=== PATIENT | male | born 1990 | race African-American/Black ===

== ENCOUNTER 2016-12-09 12:01 | Emergency (ER) | payer OTHER ==
[~2016-12-09] VITALS: Ht 177.8 cm; Wt 65.0 kg
[~2016-12-09 12:01] MED LIST: BACT800T5 PO; CEPH-459 PO
--- NOTE | 2016-12-09 12:13 | PD ---
HPI . suicide ideation/depression, suicide attempt Chief Complaint: suicidal ideation Time Seen by Provider: 12:13 Travel History International Travel<30 days: No Contact w/Intl Traveler<30days: No Traveled to known affect area: No History of Present Illness HPI 26-year-old male with history of bipolar disorder here with complaints of worsening depression and suicidal ideation. Patient tells me that his "baby christinaa" left him in February and took his only child away from him been feeling down and depressed ever since. He reports that he has grown up his whole life in a double parent household and it is causing him a great depression thinking that his child only has one parent available. He says despite having visitation with the child, he remains extremely depressed. Yesterday he decides to take 6 Latuda tablets. He went to [facility] this morning in hopes of receiving help. He was Gibson acted and brought into the emergency department for further evaluation. He currently reports depressed mood without any medical complaints. PFSH Past Medical History Hx Anticoagulant Therapy: No ADHD: Yes Asthma: Yes Anxiety: Yes Depression: Yes Cardiovascular Problems: No Chemotherapy: No Cerebrovascular Accident: No Diabetes: No Diminished Hearing: No Genitourinary: No Musculoskeletal: No Neurologic: No Reproductive: No Respiratory: Yes (ASTHMA) Immunizations Current: Yes Past Surgical History Other Surgery: No Social History Alcohol Use: Yes (OCC) Tobacco Use: No (DENIES) Substance Use: Yes (MARIJUANA, 2 DAYS AGO, 2X WEEKLY) Allergies-Medications (Allergen,Severity, Reaction): Coded Allergies: *MDRO Multi-Drug Resistant Organism (Verified Adverse Reaction, Unknown, 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 (face-06/06/16) Reported Meds & Prescriptions Reported Meds & Active Scripts Active Reported Gabapentin 300 Mg Cap 300 Mg PO TID Latuda (Lurasidone) 40 Mg Tab 40 Mg PO DAILY Review of Systems General / Constitutional: No: Fever Eyes: No: Visual changes HENT: No: Headaches Cardiovascular: No: Chest Pain or Discomfort Respiratory: No: Shortness of Breath Gastrointestinal: No: Abdominal Pain Genitourinary: No: Dysuria Musculoskeletal: No: Pain Skin: No Rash Neurologic: No: Weakness Psychiatric: Positive: Depression, Suicidal Ideations Endocrine: No: Polydipsia Hematologic/Lymphatic: No: Easy Bruising Physical Exam Narrative GENERAL: AAO x 3, no acute distress, Well-nourished, well-developed patient. SKIN: Warm and dry. No visible rashes or bruising. HEAD: Normocephalic and atraumatic. EYES: No scleral icterus. No injection or drainage. EOM intact, PERRLA ENT: No nasal drainage noted. Mucous membranes pink. Airway patent. NECK: Supple, trachea midline. No JVD. CARDIOVASCULAR: Regular rate and rhythm without murmurs, gallops, or rubs. RESPIRATORY: Breath sounds equal bilaterally. No accessory muscle use. No rhonchi or rales. GASTROINTESTINAL: Abdomen soft, non-tender, nondistended. EXTREMITIES: No cyanosis or edema. NEURO: CN II through XII intact, channel rougher strength normal bilaterally, upper and lower extremity strength 5 out of 5 BACK: Nontender without obvious deformity. No CVA tenderness. PSYCH: AAO x 3, normal affect. Data Data Last Documented VS Vital Signs Date Time Temp Pulse Resp B/P Pulse Ox O2 Delivery O2 Flow Rate FiO2 12/09/16 12:22 98 17 12/09/16 12:16 98.2 115/78 99 Orders Complete Blood Count With Diff (12/09/16 12:23) Comprehensive Metabolic Panel (12/09/16 12:23) Psych Screen (12/09/16 12:23) Drug Screen, Random Urine (12/09/16 12:23) Alcohol (Ethanol) (12/09/16 12:23) Salicylates (Aspirin) (12/09/16 12:23) Tylenol (Acetaminophen) (12/09/16 12:23) Labs Laboratory Tests Test 12/09/16 12:30 White Blood Count 11.4 TH/MM3 Red Blood Count 4.66 MIL/MM3 Hemoglobin 14.0 GM/DL Hematocrit 43.2 % Mean Corpuscular Volume 92.8 FL Mean Corpuscular Hemoglobin 30.1 PG Mean Corpuscular Hemoglobin 32.4 % Concent Red Cell Distribution Width 12.6 % Platelet Count 313 TH/MM3 Mean Platelet Volume 7.4 FL Neutrophils (%) (Auto) 67.0 % Lymphocytes (%) (Auto) 18.7 % Monocytes (%) (Auto) 5.2 % Eosinophils (%) (Auto) 8.8 % Basophils (%) (Auto) 0.3 % Neutrophils # (Auto) 7.6 TH/MM3 Lymphocytes # (Auto) 2.1 TH/MM3 Monocytes # (Auto) 0.6 TH/MM3 Eosinophils # (Auto) 1.0 TH/MM3 Basophils # (Auto) 0.0 TH/MM3 CBC Comment DIFF FINAL Differential Comment Sodium Level 136 MEQ/L Potassium Level 3.6 MEQ/L Chloride Level 100 MEQ/L Carbon Dioxide Level 28.6 MEQ/L Anion Gap 7 MEQ/L Blood Urea Nitrogen 17 MG/DL Creatinine 1.56 MG/DL Estimat Glomerular Filtration 65 ML/MIN Rate Random Glucose 89 MG/DL Calcium Level 9.4 MG/DL Total Bilirubin 0.8 MG/DL Aspartate Amino Transf 20 U/L (AST/SGOT) Alanine Aminotransferase 25 U/L (ALT/SGPT) Alkaline Phosphatase 78 U/L Total Protein 8.3 GM/DL Albumin 4.0 GM/DL Salicylates Level LESS THAN 1.7 MG/DL Urine Opiates Screen NEG Acetaminophen Level LESS THAN 2.0 MCG/ML Urine Barbiturates Screen NEG Urine Amphetamines Screen NEG Urine Benzodiazepines Screen NEG Urine Cocaine Screen POS Urine Cannabinoids Screen POS Ethyl Alcohol Level LESS THAN 3 MG/DL MDM Medical Decision Making Medical Screen Exam Complete: Yes Emergency Medical Condition: Yes Medical Record Reviewed: Yes Differential Diagnosis Suicidal ideation, suicide attempt, depression, bipolar disorder Narrative Course This is a 26-year-old male here with complaints of worsening depression and suicidal ideation. He has no specific medical complaints. Have been ordered and if they are within normal limits, he will be medically cleared for psych screen. Labs reviewed: patient cleared for psych screen Diagnosis Primary Impression: Suicidal behavior Qualified Code: T14.91 - Suicidal behavior with attempted self-injury Additional Impression: Suicidal thoughts Condition: Stable Roula Osorio Dec 09, 2016 12:13
[2016-12-09 12:16] VITALS: BP 115/78; PULSE 75; RESP 17; TEMP 98.2; O2SAT 99
[2016-12-09] MEDS ORDERED: GABA300C5 PO (12:25)
[2016-12-09] MEDS ORDERED: LURA40 PO (12:25)
[2016-12-09 12:46] LABS: AUTOMATED NEUTROPHIL # 7.6 TH/MM3 (1.8-7.7); BASOPHIL % 0.3 % (0.0-2.0); EOSINOPHIL % 8.8 % (0.0-4.0); HEMATOCRIT 43.2 % (39.0-51.0); HEMO FLAGS DIFF FINAL; LYMPH % 18.7 % (9.0-44.0); LYMPHOCYTE # 2.1 TH/MM3 (1.0-4.8); MEAN CELL VOLUME 92.8 FL (80.0-100.0); MEAN CORPUSCULAR HEMOGLOBIN 30.1 PG (27.0-34.0); MEAN CORPUSCULAR HGB CONC 32.4 % (32.0-36.0); MONO % 5.2 % (0.0-8.0); PLATELET COUNT 313 TH/MM3 (150-450); RED BLOOD COUNT 4.66 MIL/MM3 (4.50-5.90); RED CELL DISTRIBUTION WIDTH 12.6 % (11.6-17.2); WHITE BLOOD COUNT 11.4 TH/MM3 (4.0-11.0)
[2016-12-09 12:52] LABS: AMPHETAMINE, URINE NEG (NEG); BARBITURATES, URINE NEG (NEG); COCAINE, URINE POS (NEG)
[2016-12-09 13:02] LABS: ACETAMINOPHEN LESS THAN 2.0 MCG/ML (10.0-30.0); ALT (GPT) 25 U/L (12-78); ANION GAP 7 MEQ/L (5-15); AST (GOT) 20 U/L (15-37); BICARBONATE 28.6 MEQ/L (21.0-32.0); BLOOD UREA NITROGEN 17 MG/DL (7-18); CHLORIDE 100 MEQ/L (98-107); GLOMERULAR FILTRATION RATE 65 ML/MIN (>89); POTASSIUM 3.6 MEQ/L (3.5-5.1); SODIUM (NA) 136 MEQ/L (136-145)
[2016-12-09 13:04] LABS: ALKALINE PHOSPHATASE 78 U/L (45-117); TOTAL BILIRUBIN ADULT 0.8 MG/DL (0.2-1.0)
[2016-12-09 15:07] VITALS: BP 123/77; PULSE 80; RESP 20; TEMP 98.4; O2SAT 98
--- NOTE | 2016-12-09 17:23 | PD ---
History of Present Illness Chief Complaint: Psychiatric Symptoms Time Seen by Provider: 17:00 Travel History International Travel<30 Days: No Contact w/Intl Traveler<30days: No Known affected area: No Legal Status Legal Status: Gibson Act Gibson Act Signed By: Sofi PERAZA [facility] History of Present Illness: History of Present Illness HPI 26-year-old male with reported history of bipolar disorder who presents under a BA initiated by provider at [facility] . The report indicates that he took # 6 Latuda yesterday as a suicidal gesture. He reports that his girlfriend broke up with him and he is missing his child. He has also been using cocaine and ETOH. He presents with positive toxicology for cocaine and cannabinoids Patient was monitored in [facility]. He presented no behavioral concerns and no suicidality. This morning the patient is clinically sober.He is alert, oriented, calm and cooperative. Speech is clear and logical. No psychosis and no aniya. Mood is depressed. He states that since he broke up with his girlfriend he has been missing his child and has been hanging around with different people, staying out and using substances. At this time he is requesting referrals to engage in counseling to help increase his coping skills as well as to get back on his medications. At this time he is denying any suicidal or homicidal ideation, intent or plan. PFSH Past Medical History Hx Anticoagulant Therapy: No ADHD: Yes Asthma: Yes Bipolar Disorder: Yes Anxiety: Yes Depression: Yes Cardiovascular Problems: No Chemotherapy: No Cerebrovascular Accident: No Diabetes: No Diminished Hearing: No Gastrointestinal Disorders: No Genitourinary: No Musculoskeletal: No Neurologic: No Reproductive: No Respiratory: Yes (ASTHMA) Immunizations Current: Yes Past Surgical History Other Surgery: No Psychiatric History Psychiatric History Hx Psychiatric Treatment: Pt. has diagnosis of BiPolar and Depression. Has been tretaed at [facility] History of Inpatient Treatment: Yes Guns or firearms in home: No Social History Single male, lives by himself. Has one child. 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 Not impaired. MDM Medical Decision Making Medical Record Reviewed: Yes Assessment/Plan 26 year old male with a reported hx of bipolar disorder, recent substance use disorder who presented to [facility] requesting counseling services. He informed the provider that he had taken # 6 of Latuda the previous date and he was therefore placed under a BA. At this time the patient does not meet BA criteria as he is denying suicidal ideation, intent or plan. he is future oriented solomon wants to be able to initiate counseling. He also wants to begin work on his recovery and sobriety. He is planning on trying to spend more time with his son as well. He is offered the resources available. Encouraged to return to [facility] if any changes. Ba will be lifted. follow up with [facility]. Orders Complete Blood Count With Diff (12/09/16 12:23) Comprehensive Metabolic Panel (12/09/16 12:23) Psych Screen (12/09/16 12:23) Drug Screen, Random Urine (12/09/16 12:23) Alcohol (Ethanol) (12/09/16 12:23) Salicylates (Aspirin) (12/09/16 12:23) Tylenol (Acetaminophen) (12/09/16 12:23) Diet Regular Basic (12/09/16 Dinner) Results Vital Signs Date Time Temp Pulse Resp B/P Pulse Ox O2 Delivery O2 Flow Rate FiO2 12/09/16 15:07 98.4 80 20 123/77 98 Room Air 6/7/17 12:22 98 17 12/09/16 12:16 98.2 75 17 115/78 99 Laboratory Tests Test 12/09/16 12:30 White Blood Count 11.4 Red Blood Count 4.66 Hemoglobin 14.0 Hematocrit 43.2 Mean Corpuscular Volume 92.8 Mean Corpuscular Hemoglobin 30.1 Mean Corpuscular Hemoglobin 32.4 Concent Red Cell Distribution Width 12.6 Platelet Count 313 Mean Platelet Volume 7.4 Neutrophils (%) (Auto) 67.0 Lymphocytes (%) (Auto) 18.7 Monocytes (%) (Auto) 5.2 Eosinophils (%) (Auto) 8.8 Basophils (%) (Auto) 0.3 Neutrophils # (Auto) 7.6 Lymphocytes # (Auto) 2.1 Monocytes # (Auto) 0.6 Eosinophils # (Auto) 1.0 Basophils # (Auto) 0.0 CBC Comment DIFF FINAL Differential Comment Sodium Level 136 Potassium Level 3.6 Chloride Level 100 Carbon Dioxide Level 28.6 Anion Gap 7 Blood Urea Nitrogen 17 Creatinine 1.56 Estimat Glomerular Filtration 65 Rate Random Glucose 89 Calcium Level 9.4 Total Bilirubin 0.8 Aspartate Amino Transf 20 (AST/SGOT) Alanine Aminotransferase 25 (ALT/SGPT) Alkaline Phosphatase 78 Total Protein 8.3 Albumin 4.0 Salicylates Level LESS THAN 1.7 Urine Opiates Screen NEG Acetaminophen Level LESS THAN 2.0 Urine Barbiturates Screen NEG Urine Amphetamines Screen NEG Urine Benzodiazepines Screen NEG Urine Cocaine Screen POS Urine Cannabinoids Screen POS Ethyl Alcohol Level LESS THAN 3 Diagnosis Primary Impression: Adjustment disorder Additional Impression: Substance use disorder Psychiatrically Cleared: Yes Med/ Other Pt Specific Info: No Change to Meds Disposition: 01 DISCHARGE HOME Condition: Stable Problem Qualifiers Primary Impression: Adjustment disorder Qualified Code: F43.21 - Adjustment disorder with depressed mood Ana Darden Dec 09, 2016 17:23
[2016-12-09 17:35] VITALS: BP 123/77; TEMP 98.4
== END 2016-12-09 17:37 | disposition home or self-care (01) ==
LOC: NEPD 12:01 → NEPJ 17:37
DX: T14.91 Suicide attempt (principal); F43.21 Adjustment disorder with depressed mood; F31.9 Bipolar disorder, unspecified; J45.909 Unspecified asthma, uncomplicated
CPT/HCPCS: 80053; 80307; 85025; 99285